=== PATIENT | male | born 1990 | race Caucasian/White ===

== ENCOUNTER 2017-05-09 17:25 | Emergency (ER) | payer OTHER ==
[2017-05-09] MEDS ORDERED: Cephalexin 500 MG Cap PO ONE (17:48)
--- NOTE | 2017-05-09 18:12 | EDM.PDOC ---
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 He complains of pain in his right wrist with any movement and is any numbness or tingling. He has an abrasion over the base of his middle finger Review of systems: As per history of present illness and below otherwise all systems reviewed and negative. Past medical history: As per history of present illness and as reviewed below otherwise noncontributory. Surgical history: As per history of present illness and as reviewed below otherwise noncontributory. Social history: No reported history of drug or alcohol abuse. Family history: As per history of present illness and as reviewed below otherwise noncontributory. Physical exam: General: Well developed, well nourished in NAD HEENT: Atraumatic, normocephalic, pupils reactive, negative for conjunctival pallor or scleral icterus, mucous membranes moist, throat clear, neck supple, nontender, trachea midline. Lungs: Clear to auscultation, breath sounds equal bilaterally, chest nontender. Heart: S1S2, regular, negative for clicks, rubs, or JVD. Abdomen: Soft, nondistended, nontender. Negative for masses or hepatosplenomegaly. Negative for costovertebral tenderness. Pelvis: Stable nontender. Genitourinary: Deferred. Rectal: Deferred. Extremities:Bilateral elbow abrasions, he has full range of motion and there is no swelling. Patient's right wrist is tender to palpation with no swelling or obvious deformities. He has limited range of motion secondary to pain. Brisk capillary refill distally and he has tenderness with movement of his fingers but has full range of motion. There are 2 small abrasions, dorsally over the middle MCP joint with mild erythema surrounding. There is no edema or purulent drainage. negative for cords or calf pain. Neurovascular unremarkable. Neuro: Awake, alert, oriented. Cranial nerves II through XII unremarkable. Cerebellum unremarkable. Motor and sensory unremarkable throughout. Exam nonfocal. Diagnostics: []Patient's blood was drawn for hepatitis B, a C and HIV X-ray wrist and hand show Therapeutics: []Patient started on Keflex. He states he is up-to-date with tetanus Impression: []Body fluid exposure, right wrist Plan: []Follow-up with your primary care physician for blood work results and further care Definitive disposition and diagnosis as appropriate pending reevaluation and review of above. Right Wrist Pain Score (Numeric/FACES): 7 - Related Data Allergies Allergy/AdvReac Type Severity Reaction Status Date / Time azithromycin [From Zithromax] Allergy Rash Verified 05/09/17 17:38 Home Meds: Home Meds Cephalexin [Keflex] 500 mg PO Q6HR #28 cap 05/09/17 [Rx] Past Medical History - Past Health History Medical/Surgical History: Denies Medical/Surgical History Social & Family History - Family History Family Medical History: Noncontributory - Tobacco Use Smoking Status *Q: Current Some Day Smoker Years of Tobacco use: 1 Packs/Tins Daily: 1 - Alcohol Use Days Per Week of Alcohol Use: 1 Number of Drinks Per Day: 2 Total Drinks Per Week: 2 - Recreational Drug Use Recreational Drug Use: No Review of Systems - Review of Systems Review Of Systems: See Below (See history of present illness) ED EXAM, GENERAL - Physical Exam Exam: See Below (See history of present illness) Course - Vital Signs Last Recorded V/S: Last Vital Signs Temp 36.2 C 05/09/17 17:39 Pulse 66 05/09/17 17:39 Resp 16 05/09/17 17:39 BP 144/82 H 05/09/17 17:39 Pulse Ox 97 05/09/17 17:39 - Orders/Labs/Meds Orders: Active Orders 24 hr Category Date Time Status Splinting [RC] ASDIRECTED Care 05/09/17 18:45 Ordered Hand 2V Rt [CR] Stat Exams 05/09/17 17:47 Taken Wrist 2V Rt [CR] Stat Exams 05/09/17 17:47 Taken HEP B SURFACE AB,QNT [REF] Stat Lab 05/09/17 18:00 Received HEPATITIS C AB [REF] Stat Lab 05/09/17 18:00 Received HIV12 AG/AB 4TH GEN W/REFLEX [CHEM] Stat Lab 05/09/17 18:00 Received Meds: Medications Discontinued Medications Generic Name Dose Route Start Last Admin Trade Name Frank PRN Reason Stop Dose Admin Cephalexin 500 mg 05/09/17 17:48 05/09/17 18:39 Keflex PO 05/09/17 17:49 500 mg ONETIME ONE Administration Departure - Departure Time of Disposition: 18:57 Disposition: Home, Self-Care 01 Condition: Good Clinical Impression: Exposure to blood or body fluid Right wrist sprain Qualifiers: Encounter type: initial encounter Qualified Code(s): S63.501A - Unspecified sprain of right wrist, initial encounter Abrasion of hand, right Qualifiers: Encounter type: initial encounter Qualified Code(s): S60.511A - Abrasion of right hand, initial encounter Elbow abrasion Qualifiers: Encounter type: initial encounter Laterality: unspecified laterality Qualified Code(s): S50.319A - Abrasion of unspecified elbow, initial encounter - Discharge Information Prescriptions: Cephalexin [Keflex] 500 mg PO Q6HR #28 cap Referrals: PCP,None [Primary Care Provider] - Forms: ED Department Discharge Additional Instructions: The following information is given to patients seen in the emergency department who are being discharged to home. This information is to outline your options for follow-up care. We provide all patients seen in our emergency department with a follow-up referral. The need for follow-up, as well as the timing and circumstances, are variable depending upon the specifics of your emergency department visit. If you don't have a primary care physician on staff, we will provide you with a referral. We always advise you to contact your personal physician following an emergency department visit to inform them of the circumstance of the visit and for follow-up with them and/or the need for any referrals to a consulting specialist. The emergency department will also refer you to a specialist when appropriate. This referral assures that you have the opportunity for follow-up care with a specialist. All of these measure are taken in an effort to provide you with optimal care, which includes your follow-up. Under all circumstances we always encourage you to contact your private physician who remains a resource for coordinating your care. When calling for follow-up care, please make the office aware that this follow-up is from your recent emergency room visit. If for any reason you are refused follow-up, please contact the [facility] Emergency Department at and asked to speak to the emergency department charge nurse. Aleve or ibuprofen for pain, ice elevate. Wear splint for comfort. Follow-up with primary care physician for blood work results do not have one call: [facility] [address] [place] [phone] - My Orders Last 24 Hours: My Active Orders 05/09/17 17:47 Hand 2V Rt [CR] Stat Wrist 2V Rt [CR] Stat 05/09/17 18:00 HEP B SURFACE AB,QNT [REF] Stat HEPATITIS C AB [REF] Stat HIV12 AG/AB 4TH GEN W/REFLEX [CHEM] Stat 05/09/17 18:45 Splinting [RC] ASDIRECTED - Assessment/Plan Last 24 Hours: My Active Orders 05/09/17 17:47 Hand 2V Rt [CR] Stat Wrist 2V Rt [CR] Stat 05/09/17 18:00 HEP B SURFACE AB,QNT [REF] Stat HEPATITIS C AB [REF] Stat HIV12 AG/AB 4TH GEN W/REFLEX [CHEM] Stat 05/09/17 18:45 Splinting [RC] ASDIRECTED
[2017-05-09 21:09] VITALS: BP 121/77
--- NOTE | 2017-05-10 13:30 | CR ---
EXAM DATE: 05/09/17 PATIENT'S AGE: 26 Patient: JESUS ALBERTO TRAN Facility: [place], [place] Site . Site : 1992 Study: XRay Extremity Right [id number]/13/2017 6:15:57 PM Ordering Physician: Mark Ibarra Final Report: HISTORY: Right hand pain. Recent trauma. TECHNIQUE: Two views of the right hand. COMPARISON: 08/31/2006. FINDINGS: There is no acute fracture or malalignment. Mild chronic deformity of the distal tuft of the distal phalanx of the 4th digit likely reflects sequelae of remote trauma. Ulnar minus variance. Alignment otherwise maintained. Joint spaces maintained. No radiopaque foreign body or abnormal soft tissue gas. IMPRESSION: No acute fracture or acute malalignment. Dictated by Damian Fischer MD @ 05/09/2017 6:52:09 PM Dictated by: Damian Fischer MD @ 05/09/2017 18:52:16 (Electronic Signature) Report Signed by Proxy. TOMY
--- NOTE | 2017-05-10 13:31 | CR ---
EXAM DATE: 05/09/17 PATIENT'S AGE: 26 Patient: JESUS ALBERTO TRAN Facility: [place], [place] Site . Site : 1992 Study: XRay Extremity Right Wrist [id number]/13/2017 6:16:47 PM Ordering Physician: Mark Ibarra Final Report: HISTORY: Right wrist pain. TECHNIQUE: Two views of the right wrist. COMPARISON: No prior. FINDINGS: No acute fracture. Ulnar minus variance. Alignment otherwise maintained. Joint spaces maintained. No radiopaque foreign body or abnormal soft tissue gas. IMPRESSION: No acute fracture or acute malalignment. Dictated by Damian Fischer MD @ 05/09/2017 6:53:38 PM Dictated by: Damian Fischer MD @ 05/09/2017 18:53:44 (Electronic Signature) Report Signed by Proxy. TOMY
== END 2017-05-09 19:20 | disposition home or self-care (01) ==
LOC: MW.ED 17:25
DX: S63.501A Unspecified sprain of right wrist, initial encounter (principal); S60.511A Abrasion of right hand, initial encounter; S50.311A Abrasion of right elbow, initial encounter; S50.312A Abrasion of left elbow, initial encounter; Z77.21 Contact with and (suspected) exposure to potentially hazardous body fluids; F17.210 Nicotine dependence, cigarettes, uncomplicated; Z88.1 Allergy status to other antibiotic agents; X58.XXXA Exposure to other specified factors, initial encounter
CPT/HCPCS: 73100; 73120; 86706; 86803; 87389; 99283; A9270; 36415